=== PATIENT | female | born 1985 | race African-American/Black ===

== ENCOUNTER 2017-03-20 09:19 | Emergency (ER) | payer SELFPAY ==
[~2017-03-20] VITALS: Ht 157.5 cm; Wt 100.0 kg
[2017-03-20 10:19] VITALS: BP 147/89
== END 2017-03-20 10:35 | disposition home or self-care (01) ==
LOC: ER 09:59
DX: J06.9 Acute upper respiratory infection, unspecified (principal); E28.2 Polycystic ovarian syndrome; Z91.040 Latex allergy status
CPT/HCPCS: 99282